=== PATIENT | male | born 1985 | race African-American/Black ===

== ENCOUNTER 2016-12-21 20:24 | Emergency (ER) | payer BC ==
[2016-12-21 21:50] LABS: ABSOLUTE BASOPHILS # (AUTO) 0.1 10^3/uL (0.0-0.2); ABSOLUTE EOSINOPHILS # (AUTO) 0.3 10^3/uL (0.0-0.6); ABSOLUTE MONOCYTES (AUTO) 0.8 10^3/uL (0.1-1.4); ABSOLUTE NEUT (AUTO) 5.1 10^3/uL (1.7-8.2); BASOPHILS % (AUTO) 0.7 % (0-2); EOSINOPHILS % (AUTO) 3.9 % (0-6); HEMATOCRIT 46.2 % (37.9-51.0); HEMOGLOBIN 16.2 g/dL (13.5-17.0); HGB HCT DIFFERENCE 2.4; LYMPHOCYTES % (AUTO) 24.3 % (13-45); MEAN CORPUSCULAR HEMOGLOBIN 31.4 pg (27.0-33.4); MEAN CORPUSCULAR HGB CONC 35.2 g/dL (32.0-36.0); MEAN CORPUSCULAR VOLUME 89 fl (80-97); MONOCYTES % (AUTO) 9.2 % (3-13); RED BLOOD COUNT 5.18 10^6/uL (4.35-5.55); RED CELL DISTRIBUTION WIDTH 13.2 % (11.5-14.0); SEGMENTED NEUTROPHILS % (AUTO) 61.9 % (42-78); WHITE BLOOD COUNT 8.3 10^3/uL (4.0-10.5)
[2016-12-21 22:05] LABS: ALANINE AMINOTRANSFERASE 42 U/L (21-72); ALBUMIN 4.6 g/dL (3.5-5.0); ALKALINE PHOSPHATASE 66 U/L (38-126); ANION GAP 13 (5-19); ASPARTATE AMINO TRANSFERASE 27 U/L (17-59); BILIRUBIN,DIRECT 0.2 mg/dL (0.0-0.4); BILIRUBIN,TOTAL 0.6 mg/dL (0.2-1.3); BLOOD UREA NITROGEN 12 mg/dL (7-20); CALCIUM 9.8 mg/dL (8.4-10.2); CARBON DIOXIDE 27 mmol/L (22-30); CHLORIDE 104 mmol/L (98-107); CREATININE RESULT 0.84 mg/dL (0.52-1.25); GLUCOSE 99 mg/dL (75-110); LIPASE 117.7 U/L (23-300); POTASSIUM 4.1 mmol/L (3.6-5.0); SODIUM 143.8 mmol/L (137-145); TOTAL PROTEIN 7.6 g/dL (6.3-8.2)
[2016-12-21] MEDS ORDERED: ONDANSETRON HCL INJ/PF 4 MG/2 ML SDV IV ONE (22:14)
[2016-12-21] MEDS ORDERED: LOPERAMIDE HCL 2 MG CAPSULE PO ONE (22:14)
[2016-12-21] MEDS ORDERED: NORMAL SALINE 1000 ML 1,000 ML IV ONE (22:14)
[2016-12-21] MEDS ORDERED: ONDANSETRON ODT 4 MG TAB (6 TAB/DSPK) PO PRN (22:53)
--- NOTE | 2016-12-21 22:54 | ER Document Report ---
ED General - General Chief Complaint: Nausea/Vomiting/Diarrhea Stated Complaint: DIARRHEA,VOMITING Time Seen by Provider: 12/21/16 22:13 Notes: Patient is a 31-year-old male with a past medical history, no prior surgical history who presents with vomiting and diarrhea. Patient states that his symptoms been present for the past 16 hours and did start after he ate at a restaurant. No known sick contacts. States he has has been able tolerate some fluids today but is unable to eat. He has had 4-5 watery bowel movements as well as multiple episodes of vomiting the contents of what is attempted to eat. He denies any focal abdominal pain. Does note intermittent abdominal cramping prior to his episodes of diarrhea or vomiting. He denies any syncope. No recent history of similar symptoms. He has not seen his primary care doctor regarding today's concerns. He has not tried any to improve his symptoms at home. TRAVEL OUTSIDE OF THE [place] 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 HENT: Negative for sore throat. Eyes: Negative for visual changes. Cardiovascular: Negative for chest pain. Respiratory: Negative for shortness of breath. Gastrointestinal: Negative for abdominal pain, positive for vomiting and diarrhea Genitourinary: Negative for dysuria. Musculoskeletal: Negative for back pain. Skin: Negative for rash. Neurological: Negative for headaches, weakness or numbness. 10 point ROS negative except as marked above and in HPI. Physical Exam - Vital signs Vitals: Temp Pulse Resp BP Pulse Ox 98.5 F 70 20 141/90 H 98 12/21/16 21:09 12/21/16 21:09 12/21/16 21:09 12/21/16 21:09 12/21/16 21:09 Interpretation: Normal Notes: PHYSICAL EXAMINATION: GENERAL: Well-appearing, well-nourished and in no acute distress. HEAD: Atraumatic, normocephalic. EYES: Pupils equal round and reactive to light, extraocular movements intact, sclera anicteric, conjunctiva are normal. ENT: nares patent, oropharynx clear without exudates. Moderately dry mucous membranes. NECK: Normal range of motion, supple without lymphadenopathy LUNGS: Breath sounds clear to auscultation bilaterally and equal. No wheezes rales or rhonchi. HEART: Regular rate and rhythm without murmurs ABDOMEN: Soft, nontender, normoactive bowel sounds. No guarding, no rebound. No masses appreciated. EXTREMITIES: Normal range of motion, no pitting or edema. No cyanosis. NEUROLOGICAL: No focal neurological deficits. Moves all extremities spontaneously and on command. PSYCH: Normal mood, normal affect. SKIN: Warm, Dry, normal turgor, no rashes or lesions noted. Course - Re-evaluation Re-evalutation: 12/21/16 22:53 Presentation of an overall well-appearing patient in no acute distress with complaints of nausea, vomiting, diarrhea. This is consistent with likely viral gastroenteritis. Patient has no abdominal tenderness on exam and specifically no tenderness in the RLQ, LLQ, RUQ. Overall well hydrated on exam. Able to tolerate oral intake here in the emergency department. Low clinical suspicion for any acute life-threatening etiology based on exam and history including acute cholecystitis, SBO, appendicitis, nephrolithiasis, or pylonephritis. CMP without evidence of acute hepatitis or significant dehydration. At this time will discharge with return precautions and follow-up recommendations. Verbal discharge instructions given a the bedside and opportunity for questions given. Medication warnings reviewed. Patient is in agreement with this plan and has verbalized understanding of return precautions and the need for primary care follow-up in the next 24-72 hours. - Vital Signs Vital signs: Temp Pulse Resp BP Pulse Ox 98.5 F 70 17 131/74 H 98 12/21/16 21:09 12/21/16 23:47 12/21/16 23:47 12/21/16 23:47 12/21/16 23:47 - Laboratory Result Diagrams: 12/21/16 21:40 12/21/16 21:40 Discharge - Discharge Clinical Impression: Vomiting and diarrhea Condition: Good Disposition: HOME, SELF-CARE Additional Instructions: Your symptoms are likely due to a viral illness and should resolve in the next several days. You can take [id number] loperamide also known as Imodium as needed for diarrhea per box instructions. Continue to stay hydrated with plenty of solution such as Gatorade or Pedialyte. You are being prescribed Zofran to take as needed for nausea and vomiting. Please return if you develop severe abdominal pain, pass out, become unable to tolerate any oral fluids for 12 more hours, or any other symptoms that are concerning to you. Forms: Return to Work
[2016-12-21 22:59] LABS: APPEARANCE,URINE CLEAR; BILIRUBIN,URINE NEGATIVE (NEGATIVE); GLUCOSE, URINE NEGATIVE (NEGATIVE); KETONES,URINE NEGATIVE (NEGATIVE); LEUKOCYTE ESTERASE,URINE NEGATIVE (NEGATIVE); NITRITE,URINE NEGATIVE (NEGATIVE); PROTEIN,URINE NEGATIVE (NEGATIVE); URINE SPECIFIC GRAVITY 1.026; UROBILINOGEN,URINE NEGATIVE mg/dL (<2.0)
[2016-12-21 23:48] VITALS: BP 131/74
== END 2016-12-21 23:47 | disposition home or self-care (01) ==
LOC: ER 20:24
DX: R11.2 Nausea with vomiting, unspecified (principal); R19.7 Diarrhea, unspecified
CPT/HCPCS: 99284; 96361; 96374; 36415; 83690; 85025; 80053; 81001; J2405; J7030

== ENCOUNTER 2017-03-05 16:11 | Emergency (ER) | payer OTHER, BC ==
[2017-03-05 16:16] VITALS: BP 141/98
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
[2017-03-05] MEDS ORDERED: IBUPROFEN 800 MG TABLET PO ONE (18:10)
[2017-03-05] MEDS ORDERED: CYCLOBENZAPRINE HCL 10 MG TABLET PO ONE (18:11)
== END 2017-03-05 18:10 | disposition home or self-care (01) ==
LOC: ER 16:11
DX: S16.1XXA Strain of muscle, fascia and tendon at neck level, initial encounter (principal); S29.012A Strain of muscle and tendon of back wall of thorax, initial encounter; M54.6 Pain in thoracic spine; M54.2 Cervicalgia; R51 Headache; V49.40XA Driver injured in collision with unspecified motor vehicles in traffic accident, initial encounter; R11.0 Nausea; F17.200 Nicotine dependence, unspecified, uncomplicated; Z86.14 Personal history of Methicillin resistant Staphylococcus aureus infection
CPT/HCPCS: 70450; 72070; 72125; 99284

== ENCOUNTER 2018-05-05 16:33 | Emergency (ER) | payer SELFPAY ==
[2018-05-05] MEDS ORDERED: CEFTRIAXONE INJ 250 MG VIAL IM ONE (18:42)
[2018-05-05] MEDS ORDERED: LIDOCAINE 1% INJ-PF (10 MG/ML) 30 ML SDV IM ONE (18:42)
[2018-05-05] MEDS ORDERED: AZITHROMYCIN 250 MG TABLET PO ONE (18:43)
[2018-05-05 18:48] LABS: APPEARANCE,URINE CLEAR; BILIRUBIN,URINE NEGATIVE (NEGATIVE); COLOR,URINE AMBER; GLUCOSE, URINE NEGATIVE (NEGATIVE); KETONES,URINE NEGATIVE (NEGATIVE); LEUKOCYTE ESTERASE,URINE NEGATIVE (NEGATIVE); NITRITE,URINE POSITIVE (NEGATIVE); PROTEIN,URINE NEGATIVE (NEGATIVE); URINE SPECIFIC GRAVITY 1.027
[2018-05-05 20:26] LABS: CHLAM PCR NOT DETECTED (NOT DETECT); GON PCR NOT DETECTED (NOT DETECT)
--- NOTE | 2018-05-05 20:36 | ER Document Report ---
HPI - HPI Time Seen by Provider: 05/05/18 18:06 Pain Level: 5 Notes: Patient is a 33-year-old male who presents to the emergency department with complaints of dysuria. Patient denies any frequency or urgency. He states that he does not believe he has a sexually transmitted infection although it is a possibility. - CONSTITUTIONAL Constitutional: DENIES: Fever, Chills - EENT EENT: DENIES: Sore Throat, Ear Pain, Eye problems - NEURO Neurology: DENIES: Headache, Weakness, Vision blurred, Dizzinesss / Vertigo - CARDIOVASCULAR Cardiovascular: DENIES: Chest pain - RESPIRATORY Respiratory: DENIES: Trouble Breathing, Coughing - GASTROINTESTINAL Gastrointestinal: DENIES: Abdominal Pain, Black / Bloody Stools - URINARY Urinary: REPORTS: Urgency, Frequency. 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 HEAD: Atraumatic, normocephalic. EYES: Pupils equal round extraocular movements intact, conjunctiva are normal. ENT: Nares patent NECK: Normal range of motion LUNGS: No respiratory distress Musculoskeletal: Normal range of motion, no CVA tenderness. NEUROLOGICAL: Normal speech, normal gait. PSYCH: Normal mood, normal affect. SKIN: Warm, Dry, normal turgor, no rashes or lesions noted. - INFECTION CONTROL TRAVEL OUTSIDE OF THE [place] IN LAST 30 DAYS: No Course - Re-evaluation Re-evalutation: Urinalysis is nitrite positive. Patient opted to stay to wait for the chlamydia and gonorrhea testing to result. These are both negative. Patient will be started on antibiotics for urinary tract infection. - Vital Signs Vital signs: Temp Pulse Resp BP Pulse Ox 99.9 F 113 H 18 137/93 H 97 05/05/18 16:42 05/05/18 16:42 05/05/18 16:42 05/05/18 16:42 05/05/18 16:42 - Laboratory Laboratory results interpreted by me: 05/05/18 18:20 Urine Nitrite POSITIVE H Urine Urobilinogen 4.0 H Discharge - Discharge Clinical Impression: Urinary tract infection Qualifiers: Urinary tract infection type: site unspecified Hematuria presence: without hematuria Qualified Code(s): N39.0 - Urinary tract infection, site not specified Condition: Stable Disposition: HOME, SELF-CARE Additional Instructions: Your urine shows findings consistent with a urinary tract infection. Please take all the antibiotics as directed even if your symptoms have improved. Please follow-up with your primary care physician as needed. Return to emergency room if you develop fever >101F, persistent vomiting, become lethargic, have severe pain in your sides, or any other symptoms that are concerning to you. Prescriptions: Cephalexin [Cephalexin 500 MG Tablet] 500 mg PO BID #14 tablet Forms: Return to Work
[2018-05-05 20:47] VITALS: BP 158/95
== END 2018-05-05 20:54 | disposition home or self-care (01) ==
LOC: ER 16:33
DX: N39.0 Urinary tract infection, site not specified (principal); J45.909 Unspecified asthma, uncomplicated
CPT/HCPCS: 81001; 87491; 87591; 99283

== ENCOUNTER 2018-05-09 21:51 | Emergency (ER) | payer SELFPAY ==
[2018-05-10] MEDS ORDERED: PHENAZOPYRIDINE HCL 200 MG TABLET PO ONE (00:39)
--- NOTE | 2018-05-10 00:40 | ER Document Report ---
ED Medical Screen (RME) - General Chief Complaint: Urinary Problem Stated Complaint: URINARY ISSUES Time Seen by Provider: 05/10/18 00:34 Notes: Patient is an otherwise healthy 33-year-old male presents to the emergency department for dysuria. Patient states that he was to this facility a few days ago for his generalized dysuria. States he was told he had a urinary tract infection as that has gonorrhea and Chlamydia testing were negative. States since then he has been taking Keflex as prescribed. States that the pain has increased and now high has some generalized bilateral lower back pain. Patient's denying any fever or vomiting. Patient's denying any history of recurrent urinary tract infections. Patient's denying any testicular redness or swelling. GENERAL: Alert, interacts well. No acute distress. ABDOMEN: Soft, non-tender. Non-distended. Bowel sounds present in all 4 quadrants. I have greeted and performed a rapid initial assessment of this patient. A comprehensive ED assessment and evaluation of the patient, analysis of test results and completion of the medical decision making process will be conducted by additional ED providers. TRAVEL OUTSIDE OF THE [place] 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
[2018-05-10 01:23] LABS: ABSOLUTE BASOPHILS # (AUTO) 0.1 10^3/uL (0.0-0.2); ABSOLUTE EOSINOPHILS # (AUTO) 0.2 10^3/uL (0.0-0.6); ABSOLUTE LYMPHOCYTES (AUTO) 2.4 10^3/uL (0.5-4.7); ABSOLUTE MONOCYTES (AUTO) 0.7 10^3/uL (0.1-1.4); ABSOLUTE NEUT (AUTO) 3.7 10^3/uL (1.7-8.2); EOSINOPHILS % (AUTO) 3.5 % (0-6); HEMATOCRIT 46.3 % (37.9-51.0); HEMOGLOBIN 16.7 g/dL (13.5-17.0); LYMPHOCYTES % (AUTO) 33.8 % (13-45); MEAN CORPUSCULAR HEMOGLOBIN 32.1 pg (27.0-33.4); MEAN CORPUSCULAR HGB CONC 36.1 g/dL (32.0-36.0); MEAN CORPUSCULAR VOLUME 89 fl (80-97); MONOCYTES % (AUTO) 9.9 % (3-13); PLATELET COUNT 355 10^3/uL (150-450); RED CELL DISTRIBUTION WIDTH 13.4 % (11.5-14.0); SEGMENTED NEUTROPHILS % (AUTO) 51.8 % (42-78); TOTAL CELLS COUNTED % (AUTO) 100 %; WHITE BLOOD COUNT 7.1 10^3/uL (4.0-10.5)
[2018-05-10 01:48] LABS: APPEARANCE,URINE SLIGHTLY-CLOUDY; BILIRUBIN,URINE NEGATIVE (NEGATIVE); COLOR,URINE YELLOW; GLUCOSE, URINE NEGATIVE (NEGATIVE); KETONES,URINE NEGATIVE (NEGATIVE); LEUKOCYTE ESTERASE,URINE NEGATIVE (NEGATIVE); NITRITE,URINE NEGATIVE (NEGATIVE); PROTEIN,URINE 30 mg/dL (NEGATIVE); URINE SPECIFIC GRAVITY 1.033
[2018-05-10 03:08] LABS: CHLAM PCR NOT DETECTED (NOT DETECT); GON PCR NOT DETECTED (NOT DETECT)
[2018-05-10] MEDS ORDERED: CEFTRIAXONE INJ 250 MG VIAL IM ONE (03:42)
[2018-05-10] MEDS ORDERED: LIDOCAINE 1% INJ-PF (10 MG/ML) 30 ML SDV NEB ONE (03:42)
[2018-05-10] MEDS ORDERED: AZITHROMYCIN 250 MG TABLET PO ONE (03:42)
--- NOTE | 2018-05-10 03:48 | ER Document Report ---
ED General - General Chief Complaint: Urinary Problem Stated Complaint: URINARY ISSUES Time Seen by Provider: 05/10/18 00:34 Primary Care Provider: WONG LUGO MD [NO LOCAL MD] - Follow up as needed (make an appointment if symptoms not resolved after antibiotics.) Notes: Patient is a 33-year-old male who presents with complaint of dysuria. Patient says he was seen about 5 days ago. At that time he said he did have a fever twice did have limited pain rating around from his left flank and did have some dysuria. At that time urinalysis showed nitrates. Culture and completed testing was negative. He does not have any white blood cells or bacteria in his urine however being that he did positive nitrites and symptoms he was placed on Keflex. He says he denies any further fevers however he still has a lot of burning when he urinates. He says he asked feels that the burning is getting worse. He has had no penile discharge. Patient says he is sexually active with more than one sexual partner. He does not wear protection when he has sex. He does not been told by any sexual partners that they have STDs. TRAVEL OUTSIDE OF THE [place] 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 No fevers in the last 3 days. EENT: Denies eye, ear, throat, or mouth pain or symptoms. Denies nasal or sinus congestion. GASTROINTESTINAL: Denies abdominal pain. Denies nausea, vomiting, or diarrhea. GENITOURINARY: Burning with urination MUSCULOSKELETAL: Denies neck or back pain or joint pain or swelling. SKIN: Denies rash or skin lesions. NEUROLOGICAL: Denies altered mental status or loss of consciousness. ALL OTHER SYSTEMS REVIEWED AND NEGATIVE. Physical Exam - Vital signs Vitals: Temp Pulse BP Pulse Ox 98.5 F 110 H 133/79 H 97 05/09/18 22:41 05/09/18 22:41 05/09/18 22:41 05/09/18 22:41 - Notes Notes: General Appearance: Well nourished, alert, cooperative, no acute distress, no obvious discomfort. Well-appearing. Vitals: reviewed, See vital signs table. Genital: No abnormal discharge from urethral meatus. No redness or swelling to the penis. Skin: warm, dry, appropriate color, no rash Neuro: speech clear, oriented x 3, normal affect, responds appropriately to questions. Course - Re-evaluation Re-evalutation: 05/10/18 03:48 The exact cause of the patient's sugar is 100% clear. Last time he was treated for possible UTI because of him having positive nitrates however in reviewing his urinalysis from before he did not have elevated white blood cells and did not have significant amount of bacteria in the urine. Urinalysis again today is not concerning for UTI. I will have him stop taking the Keflex as he is already taken 5 days of this medication therefore should be treated for any possible underlying UTI which I think is unlikely. He is sexually active. He sexually active multiple partners and does not wear protection therefore STDs most common cause of his dysuria. Ganglia testing are negative however this is not 100% sensitive. Could also potentially have trichomonas which is not testing urine. I therefore treated for these. Informed him that if he still having dysuria despite all this treatment then he should follow-up with urologist for further evaluation. Patient to return to ER if he has recurring fevers, vomiting, worsening pain, or worsening of his symptoms. Patient agrees with plan and will be discharged home. Dictation of this chart was performed using voice recognition software; th erefore, there may be some unintended grammatical errors. - Vital Signs Vital signs: Temp Pulse Resp BP Pulse Ox 98.1 F 79 18 138/74 H 99 05/10/18 04:22 05/10/18 04:22 05/10/18 04:22 05/10/18 04:22 05/10/18 04:22 - Laboratory Result Diagrams: 05/10/18 01:02 05/10/18 01:02 Laboratory results interpreted by me: 05/10/18 05/10/18 01:02 01:02 [facility] 36.1 H Urine Protein 30 H Urine Urobilinogen 2.0 H Discharge - Discharge Clinical Impression: Dysuria Condition: Good Disposition: HOME, SELF-CARE Additional Instructions: The exact cause of your burning with urination is not clear. Most times in y oung men this is related to a sexual transmitted diseases. Currently your gonorrhea and Chlamydia testing is negative however this testing is not 100% sensitive. We will cover you for gonorrhea and chlamydia with the antibiotics given to you here in the ER. We will also cover you for a sexually transmitted disease called trichomonas with antibiotics I have prescribed. Please have your sexual partner get tested. If you are still having burning despite completing the antibiotic course you should follow-up with the urologist, Dr. Lugo, due to your recurrent burning and pain with urination despite treatment. Return to the ER immediately if you have fevers, nausea, vomiting, or worsening of your symptoms. Prescriptions: Metronidazole [Flagyl 500 mg Tablet] 500 mg PO BID #14 tablet Forms: Return to Work Referrals: WONG LUGO MD [NO LOCAL MD] - Follow up as needed (make an appointment if symptoms not resolved after antibiotics.)
[2018-05-10 04:29] VITALS: BP 138/74
== END 2018-05-10 04:29 | disposition home or self-care (01) ==
LOC: ER 21:51
DX: R30.0 Dysuria (principal); Z86.14 Personal history of Methicillin resistant Staphylococcus aureus infection
CPT/HCPCS: 99283; 36415; 87086; 85025; 81001; 87491; 87591; J3490 ×2; J0696